=== PATIENT | male | born 1990 | race Two or more races ===

== ENCOUNTER 2020-09-29 22:07 | Emergency (ER) | payer MEDICAID, OTHER ==
[~2020-09-29] VITALS: Ht 165.1 cm; Wt 72.6 kg
[2020-09-30 00:28] VITALS: BP 145/94
== END 2020-09-30 00:35 ==
LOC: ER 22:10
DX: S30.1XXA Contusion of abdominal wall, initial encounter (principal); V49.9XXA Car occupant (driver) (passenger) injured in unspecified traffic accident, initial encounter; Y93.89 Activity, other specified; Y92.89 Other specified places as the place of occurrence of the external cause; Y99.8 Other external cause status
CPT/HCPCS: 71250; 74176

== ENCOUNTER 2020-10-01 13:39 | Emergency (ER) | payer OTHER, MEDICAID ==
[~2020-10-01] VITALS: Ht 165.1 cm; Wt 72.6 kg
[2020-10-01 15:10] VITALS: BP 132/94
== END 2020-10-01 15:50 | disposition home or self-care (01) ==
LOC: ER 13:39
DX: S20.211A Contusion of right front wall of thorax, initial encounter (principal); S30.1XXA Contusion of abdominal wall, initial encounter; V43.52XA Car driver injured in collision with other type car in traffic accident, initial encounter; Y93.89 Activity, other specified; Y92.488 Other paved roadways as the place of occurrence of the external cause; Y99.8 Other external cause status

== ENCOUNTER 2021-04-12 09:59 | Emergency (ER) | payer MEDICAID ==
[~2021-04-12] VITALS: Ht 165.1 cm; Wt 77.1 kg
[2021-04-12 12:44] VITALS: BP 146/89
== END 2021-04-12 13:42 | disposition home or self-care (01) ==
LOC: ER 09:59
DX: K52.9 Noninfective gastroenteritis and colitis, unspecified (principal); F12.10 Cannabis abuse, uncomplicated; Z20.822 Contact with and (suspected) exposure to COVID-19
CPT/HCPCS: 36415; 71045; 87426

== ENCOUNTER 2022-01-26 12:40 | Emergency (ER) | payer MEDICAID ==
[~2022-01-26] VITALS: Ht 165.1 cm; Wt 68.0 kg
[2022-01-26] MEDS ORDERED: TETRACAINE HCL 0.5% OPTH(EYE) SOLN 4ML RIGHTEYE ONE (18:30)
[2022-01-26] MEDS ORDERED: FLUORESCEIN SOD OPTH TEST STRIP RIGHTEYE ONE (18:30)
[2022-01-26 18:53] VITALS: BP 142/87
[2022-01-26] MEDS ORDERED: POLYSOL15 OP (18:57)
== END 2022-01-26 18:59 | disposition home or self-care (01) ==
LOC: ER 12:40
DX: S05.01XA Injury of conjunctiva and corneal abrasion without foreign body, right eye, initial encounter (principal); F12.10 Cannabis abuse, uncomplicated; X58.XXXA Exposure to other specified factors, initial encounter; Y93.89 Activity, other specified; Y92.89 Other specified places as the place of occurrence of the external cause; Y99.8 Other external cause status

== ENCOUNTER 2022-04-08 16:43 | Emergency (ER) | payer MEDICAID ==
[~2022-04-08] VITALS: Ht 165.1 cm; Wt 82.0 kg
[~2022-04-08 16:43] MED LIST: POLYSOL15 OP
[2022-04-08 17:43] VITALS: BP 119/74
== END 2022-04-08 18:52 | disposition left against medical advice (07) ==
LOC: ER 16:46
DX: H57.89 Other specified disorders of eye and adnexa (principal); Z53.21 Procedure and treatment not carried out due to patient leaving prior to being seen by health care provider

== ENCOUNTER 2023-10-07 04:59 | Emergency (ER) | payer MEDICAID ==
[~2023-10-07] VITALS: Ht 165.1 cm; Wt 63.6 kg
[~2023-10-07 04:59] MED LIST changes: -POLYSOL15 OP; +POLYSOL28 OP
[2023-10-07] MEDS: SODIUM CHLORIDE 0.9% 1,000 ML IV ONE (06:45)
[2023-10-07 06:48] LABS: Basophils # (auto) 0 10 ^3/uL (0-0.2); Eosinophils # (auto) 0 10 ^3/uL (0-0.8); Hemoglobin 10.9 g/dL (13.5-17.5); Lymphocytes # (auto) 0.2 10 ^3/uL (0.4-5.4); Monocytes # (auto) 0.4 10 ^3/uL (0-1.3)
[2023-10-07] MEDS: PROCHLORPERAZINE EDISYLATE 5 MG/ML 2ML VIAL IV ONE (06:49)
[2023-10-07 06:50] LABS: Basophils % (auto) 0.2 % (0.0-2.0); Hematocrit 33.9 % (41.0-53.0); Lymphocytes % (auto) 3.7 % (10.0-50.0); Mean Corpuscular Hemoglobin 26.5 pg (28.0-32.0); Mean Corpuscular Hgb Conc. 32.1 g/dL (32.0-36.0); Mean Corpuscular Volume 82.5 fL (80.0-100.0); Monocytes % (auto) 6.9 % (0.0-12.0); Neutrophils # (auto) 5.2 10 ^3/uL (1.6-8.6); Neutrophils % (auto) 89.2 % (37.0-80.0); Nucleated Red Blood Cells % 0.1 %; Red Blood Cells 4.11 10^6/uL (4.5-5.90); White Blood Cell 5.8 10^3/uL (4.4-10.8)
[2023-10-07 07:06] LABS: Alanine Aminotransferase 110 U/L (7-40); Albumin 5.7 g/dL (3.2-4.8); Alkaline Phosphatase 189 U/L (46-116); Anion Gap 18 (5-15); Aspartate Aminotransferase 265 U/L (13-40); BUN/Creatinine Ratio 10.3 (10.0-20.0); Blood Urea Nitrogen 10 mg/dL (9-23); Calcium 10.5 mg/dL (8.5-10.1); Carbon Dioxide 24 mmol/L (20-30); Chloride 96 mmol/L (98-107); Glucose 104 mg/dL (74-106); Potassium 3.3 mmol/L (3.5-5.1); Sodium 138 mmol/L (136-145)
[2023-10-07 07:07] LABS: Bilirubin, Total 2.6 mg/dL (0.2-1.0)
[2023-10-07 07:19] VITALS: TEMP 97.6
[2023-10-07] MEDS: PANTOPRAZOLE 40 MG TAB PO ONE (07:22)
[2023-10-07 07:40] VITALS: PULSE 97; RESP 16; O2SAT 97
[2023-10-07 09:03] LABS: Magnesium 1.5 mg/dL (1.6-2.6)
[2023-10-07] MEDS ORDERED: OMEP20TA PO (10:36)
[2023-10-07] MEDS ORDERED: LORA-655 PO (10:36)
[2023-10-07] MEDS: MAGNESIUM SULFATE 1GM/100ML 100 ML IV SCH (10:37)
[2023-10-07] MEDS: POTASSIUM EFFERVESENT TAB 25 MEQ PO ONE (11:17)
[2023-10-07 12:00] VITALS: BP 109/62; PULSE 96; RESP 19; O2SAT 96
== END 2023-10-07 13:18 | disposition home or self-care (01) ==
LOC: ER 04:59 → EDBD 04:59 → ER 13:17
DX: K29.20 Alcoholic gastritis without bleeding (principal); F10.139 Alcohol abuse with withdrawal, unspecified; E87.6 Hypokalemia; E83.42 Hypomagnesemia; R74.8 Abnormal levels of other serum enzymes; D64.9 Anemia, unspecified; F12.10 Cannabis abuse, uncomplicated; Y90.8 Blood alcohol level of 240 mg/100 ml or more
CPT/HCPCS: 36415; 80053; 80320; 83735; 85025; 96361; 96365; 96366; 96375; 99285; J0780; J3475; J7030

== ENCOUNTER 2023-12-06 22:10 | Emergency (ER) | payer MEDICAID ==
[~2023-12-06] VITALS: Ht 165.1 cm; Wt 74.0 kg
[~2023-12-06 22:10] MED LIST changes: +LORA-655 PO; +OMEP20TA PO
[2023-12-07] MEDS ORDERED: IBUP1TAB5 PO (00:26)
[2023-12-07] MEDS: IBUPROFEN 800 MG TAB PO ONE (01:41)
[2023-12-07 02:12] VITALS: BP 122/78; PULSE 86; RESP 18; TEMP 97.7
[2023-12-07 02:13] VITALS: O2SAT 97
== END 2023-12-07 05:21 | disposition home or self-care (01) ==
LOC: ER 22:10
DX: S20.212A Contusion of left front wall of thorax, initial encounter (principal); F12.10 Cannabis abuse, uncomplicated; Z86.2 Personal history of diseases of the blood and blood-forming organs and certain disorders involving the immune mechanism; W22.8XXA Striking against or struck by other objects, initial encounter; Y93.89 Activity, other specified; Y92.89 Other specified places as the place of occurrence of the external cause; Y99.8 Other external cause status
CPT/HCPCS: 71101

== ENCOUNTER 2024-02-09 11:34 | Emergency (ER) | payer MEDICAID ==
[~2024-02-09] VITALS: Ht 165.1 cm; Wt 68.1 kg
[~2024-02-09 11:34] MED LIST changes: +IBUP1TAB5 PO
[2024-02-09] MEDS: PROCHLORPERAZINE EDISYLATE 5 MG/ML 2ML VIAL IV ONE (12:49)
[2024-02-09] MEDS: PANTOPRAZOLE 40 MG/10 ML VIAL INJ IV ONE (12:49)
[2024-02-09] MEDS: SODIUM CHLORIDE 0.9% 1,000 ML IVB ONE (12:50)
[2024-02-09 12:58] VITALS: PULSE 74; RESP 18; O2SAT 96
[2024-02-09 13:07] LABS: Chloride 96 mmol/L (98-107); Sodium 136 mmol/L (136-145)
[2024-02-09 13:08] LABS: Anion Gap 15 (5-15); Carbon Dioxide 25 mmol/L (20-30)
[2024-02-09 13:09] LABS: Basophils # (auto) 0 10 ^3/uL (0-0.2); Calcium 10.6 mg/dL (8.5-10.1); Eosinophils # (auto) 0 10 ^3/uL (0-0.8); Lymphocytes # (auto) 0.7 10 ^3/uL (0.4-5.4); Monocytes # (auto) 0.4 10 ^3/uL (0-1.3); White Blood Cell 3.7 10^3/uL (4.4-10.8)
[2024-02-09 13:12] LABS: Basophils % (auto) 0.5 % (0.0-2.0); Eosinophils % (auto) 0.4 % (0.0-7.0); Hemoglobin 9.4 g/dL (13.5-17.5); Mean Corpuscular Hemoglobin 21.7 pg (28.0-32.0); Mean Corpuscular Hgb Conc. 31.2 g/dL (32.0-36.0); Mean Corpuscular Volume 69.5 fL (80.0-100.0); Monocytes % (auto) 9.6 % (0.0-12.0); Neutrophils # (auto) 2.6 10 ^3/uL (1.6-8.6); Neutrophils % (auto) 69.5 % (37.0-80.0); Nucleated Red Blood Cells % 0.1 %; Red Blood Cells 4.32 10^6/uL (4.5-5.90); Red Cell Distribution Width 21.8 % (11.8-14.3)
[2024-02-09 13:13] LABS: Glucose 103 mg/dL (74-106)
[2024-02-09 13:14] LABS: BUN/Creatinine Ratio 5.7 (10.0-20.0); Blood Urea Nitrogen < 5 mg/dL (9-23)
[2024-02-09 13:31] LABS: Anisocytosis Slight; Hypochromia Moderate; Platelet Estimate Adequate
[2024-02-09 13:32] LABS: Giant Platelets Few; Stomatocytes Few
[2024-02-09] MEDS ORDERED: ZOFR4T PO (13:36)
[2024-02-09] MEDS: POTASSIUM CHL 20 Meq TABLET PO ONE (14:06)
[2024-02-09 14:09] VITALS: BP 145/90; PULSE 90; RESP 18; TEMP 98.2; O2SAT 98
== END 2024-02-09 14:10 | disposition home or self-care (01) ==
LOC: ER 11:34
DX: F12.10 Cannabis abuse, uncomplicated (principal); R53.1 Weakness; R11.2 Nausea with vomiting, unspecified; F10.90 Alcohol use, unspecified, uncomplicated; Z86.2 Personal history of diseases of the blood and blood-forming organs and certain disorders involving the immune mechanism; Z79.899 Other long term (current) drug therapy; Y90.0 Blood alcohol level of less than 20 mg/100 ml
CPT/HCPCS: 36415; 80048; 85025; 96361; 96374; 96375; 99284; J0780; J7030

== ENCOUNTER 2024-11-10 11:54 | Emergency (ER) | payer MEDICAID ==
[~2024-11-10] VITALS: Ht 165.1 cm; Wt 73.0 kg
[~2024-11-10 11:54] MED LIST changes: +ZOFR4T PO
--- NOTE | 2024-11-10 12:03 | ED.PDOC ---
GI ASSESSMENT HPI Comments 34 y.o male with PMHx of anemia and ETOH abuse, presents to the ED via EMS for a chief complaint of chest pain associated with SOB and hematemesis that started today. EMS reports patient was seen at [facility] for similar complaint 3 day ago, had a blood transfusion with a total of 2 units given and diagnosed with erosion of the stomach lining. Patient reports he was in a rehabilitation center due to ETOH abuse, began vomiting blood and was taken to the hospital for the the blood transfusion. Patient reports drinking alcohol daily with last use being this morning. Patient denies any nausea, vomiting, diarrhea, melena, rectal bleeding, dizziness, fever or chills. Time Seen by MD: 11:55 Primary Care Provider: NONE Reviewed Notes: Nurses Notes, Medications, Allergies Allergies: Coded Allergies: NO KNOWN ALLERGIES (Unverified , 08/13/12) Home Meds Active Scripts Ondansetron Odt 4MG Tab (ZOFRAN PO) 4 Mg Tb, 4 MG PO Q8HP PRN for 7 Days, #21 TAB ODT TAB-DISSOLVE IN MOUTH, THEN SWALLOW Prov:ZINA SAUCEDA MD 02/09/24 Ondansetron Odt 4MG Tab (ZOFRAN PO) 4 Mg Tb, 4 MG PO Q8HP PRN for 7 Days, #21 TAB ODT TAB-DISSOLVE IN MOUTH, THEN SWALLOW Prov:ZINA SAUCEDA MD 02/09/24 Ibuprofen Micronized (Ibuprofen) 600 Mg Tab, 1 TAB PO Q6HPRN PRN, #20 TAB As needed for pain Prov:ELIZABETH [employer] 12/07/23 Lorazepam (Ativan) 0.5 Mg Tab, 1 TAB PO BID for 10 Days, #20 TAB Prov:SELENE CHARLES MD 10/07/23 Omeprazole (Gnp Omeprazole) 20 Mg Tab, 1 TAB PO BID for 15 Days, #30 TAB 1 Refill Prov:SELENE CHARLES MD 10/07/23 Polymyxin B-Trimethoprim (Trimethoprim Sulfate/Poly) Polymyxn Mariella, 1 DROP OP Q3HWA for 7 Days, #1 ML 0 Refills Prov:JUDITH TREJO 01/26/22 Information Source: Patient, Emergency Med Personnel Mode of Arrival: EMS Timing: Hours Duration: Since onset Quality: None Vomitus: Bloody Stool: Normal Recent: Ingestion of ETOH Recent Hx of: GI Bleed Modifying Factors: Nothing Associated sign and symptoms: Hematemesis Past Medical History PAST MEDICAL HISTORY: Anemia Past Medical History (Other): Erosion of the stomach lining Surgical History: Denies all surgeries Surgical History (Other): orchidectomy Family History Family History: No family hx of Cancer, No family hx of DM, No family hx of Heart shlomo Social History Smoker: Non-Smoker Alcohol: Heavy Drugs: Marijuana Lives In: Home Constitutional: denies: chills, diaphoresis, fatigue, fever, malaise, sweats, weakness, others EENTM: denies: blurred vision, double vision, ear bleeding, ear discharge, ear drainage, ear pain, ear ringing, eye pain, eye redness, hearing loss, mouth pain, mouth swelling, nasal discharge, nose bleeding, nose congestion, nose pain, photophobia, tearing, throat pain, throat swelling, voice changes, others Respiratory: reports: shortness of breath; denies: cough, hemoptysis, orthopnea, SOB at rest, SOB with excertion, stridor, wheezing, others Cardiovascular: reports: chest pain; denies: dizzy spells, diaphoresis, Dyspnea on exertion, edema, irregular heart beat, left arm pain, lightheadedness, palpitations, PND, syncope, others Gastrointestinal: reports: hematemesis; denies: abdomen distended, abdominal pain, blood streaked bowels, constipated, diarrhea, dysphagia, difficulty swallowing, melena, nausea, poor appetite, poor fluid intake, rectal bleeding, rectal pain, vomiting, others Genitourinary: denies: burning, dysuria, flank pain, frequency, hematuria, incontinence, penile discharge, penile sore, pain, testicle pain, testicle swelling, urgency, others Neurological: denies: dizziness, fainting, headache, left sided numbness, left sided weakness, numbness, paresthesia, pre-existing deficit, right sided numbness, right sided weakness, seizure, speech problems, tingling, tremors, weakness, others Musculoskeletal: denies: back pain, gout, joint pain, joint swelling, muscle pain, muscle stiffness, neck pain, others Integumetry: denies: bruises, change in color, change in hair/nails, dryness, laceration, lesions, lumps, rash, wounds, others Allergic/Immunocompromised: denies: Difficulty Healing, Frequent Infections, Hives, Itching, others Hematologic/Lymphatic: denies: anemia, blood clots, easy bleeding, easy bruising, swollen glands, others Endocrine: denies: excessive hunger, excessive sweating, excessive thirst, excessive urination, flushing, intolerance to cold, intolerance to heat, unexplained weight gain, unexplained weight loss, others Psychiatric: denies: anxiety, bipolar disorder, depression, hopeless, panic disorder, schizophrenia, sleepless, suicidal, others All Other Systems: Reviewed and Negative Physical Exam General Appearance: Moderate Distress HEENT: Pale Conjuntivae (L), Pale Conjuntivae (R), Pharynx Normal, TMs Normal Neck: Full Range of Motion, Non-Tender, Normal, Normal Inspection Respiratory: Chest Non-Tender, Lungs Clear, No Accessory Muscle Use, No Respiratory Distress, Normal Breath Sounds Cardiovascular: No Edema, No JVD, No Murmur, No Gallop, Normal Peripheral Pulses, Regular Rate/Rhythm Breast Exam: Deferred Gastrointestinal: No Organomegaly, Non Tender, No Pulsatile Mass, Normal Bowel Sounds, Soft Genitalia: Deferred Pelvic: Deferred Rectal: Deferred Extremities: No calf tenderness, Normal capillary refill, No pedal edema Musculoskeletal : Apperance: Normal Neurologic: Alert, veterinary virologist II-XII nml as Tested, Motor Weakness, Normal Affect, Normal Mood, No Sensory Deficits Cerebellar Function: Normal Reflexes: Normal Skin: Dry, Normal Color, Warm Lymphatic: No Adenopathy EKG EKG : Pulse Rate (adult): 117 Cardiac Rhythm: ST Was a procedure done? Was a procedure done?: No GI differential Dx Differential Diagnosis: Angina/[place], Gastritis/PUD, GI hemorrhage, Trauma intraab dominal, Anemia, Esophageal Varicies, Stress Ulcer X-Ray, Labs, Meds, VS Vital Signs Date Time Temp Pulse Resp B/P (MAP) Pulse Ox O2 Delivery O2 Flow Rate FiO2 11/10/24 12:20 102 11/10/24 12:03 117 11/10/24 12:00 97.7 112 18 139/85 (103) 98 97.7 11/10/24 11:59 117 Lab Test 11/10/24 12:42 Range/Units White Blood Count 5.5 4.4-10.8 10^3/uL Red Blood Count 4.31 L 4.5-5.90 10^6/uL Hemoglobin 8.5 L 13.5-17.5 g/dL Hematocrit 27.8 L 41.0-53.0 % Mean Corpuscular Volume 64.5 L 80.0-100.0 fL Mean Corpuscular Hemoglobin 19.8 L 28.0-32.0 pg Mean Corpuscular Hemoglobin Concent 30.7 L 32.0-36.0 g/dL Red Cell Distribution Width 24.5 H 11.8-14.3 % Platelet Count 276 140-450 10^3/uL Mean Platelet Volume 8.3 6.9-10.8 fL Neutrophils (%) (Auto) 76.3 37.0-80.0 % Lymphocytes (%) (Auto) 13.0 10.0-50.0 % Monocytes (%) (Auto) 10.0 0.0-12.0 % Eosinophils (%) (Auto) 0.2 0.0-7.0 % Basophils (%) (Auto) 0.5 0.0-2.0 % Neutrophils # (Auto) 4.2 1.6-8.6 10 ^3/uL Lymphocytes # (Auto) 0.7 0.4-5.4 10 ^3/uL Monocytes # (Auto) 0.5 0-1.3 10 ^3/uL Eosinophils # (Auto) 0 0-0.8 10 ^3/uL Basophils # (Auto) 0 0-0.2 10 ^3/uL Nucleated Red Blood Cells 0.0 % Prothrombin Time 11.1 9.3-11.8 sec Prothrombin Time INR 1.05 0.9-1.15 Activated Partial Thromboplast Time 28.9 24.5-34.5 SEC Sodium Level 137 136-145 mmol/L Potassium Level 3.9 3.5-5.1 mmol/L Chloride Level 99 98-107 mmol/L Carbon Dioxide Level 22 20-31 mmol/L Anion Gap 16 H 5-15 Blood Urea Nitrogen 10 9-23 mg/dL Creatinine 0.77 0.700-1.30 mg/dL Glomerular Filtration Rate Calc 121 >90 mL/min BUN/Creatinine Ratio 13.0 10.0-20.0 Serum Glucose 79 74-106 mg/dL Calcium Level 9.6 8.7-10.4 mg/dL Total Bilirubin 1.1 H 0.2-1.0 mg/dL Aspartate Amino Transferase (AST) 141 H 13-40 U/L Alanine Aminotransferase (ALT) 78 H 7-40 U/L Alkaline Phosphatase 158 H 46-116 U/L Total Protein 8.7 H 5.7-8.2 g/dL Albumin 5.2 H 3.2-4.8 g/dL Lipase 56 H 12-53 U/L Current Medications Medications (Trade) Dose Ordered Sig/Av Route Start Time Stop Time Status Last Admin Pantoprazole Sodium 50 ml @ 10 mls/hr Q5H ONCE IV 11/10/24 12:00 11/10/24 16:59 11/10/24 12:22 IV Hep-Lock was established. The patient's liver enzymes are elevated The lipase is 56 which is also elevated The patient was started on a Protonix drip. The patient was INR is 1.05 The patient's CBC shows a hemoglobin of 8.5 and hematocrit of 27.8 The patient will be admitted with an upper GI bleed and blood-loss anemia The patient understands and agrees with the management The patient was also typed and screened Time of 1ST Reevaluation: 11:58 Reevaluation 1ST: Unchanged Patient Education/Counseling: Diagnosis, Treatment, Prognosis Family Education/Counseling: No Family Present Departure 1 Departure Time of Disposition: 14:15 Impression: Primary Impression: ETOH abuse Additional Impressions: Elevated liver enzymes Upper GI bleed Blood loss anemia Disposition: 09 ADMITTED INPATIENT Admit to: Tele Condition: Fair Critical Care Note Critical Care Time?: Yes (45 min-critical care time only) Stability Stability form required: Yes Unstable for transfer: Telemetry monitoring (Telemetry monitoring required), ED Physician Assesment (Clinical assesment) Heart Score Heart Score: Heart Score Response (Comments) Value History Slightly Suspicious 0 EKG N/A 0 Age <45 0 Risk Factors No known risk factors 0 Troponin N/A 0 Total 0 I personally scribed for ZINA SAUCEDA MD ([email or web address]) on 11/10/24 at 12:03. Electronically submitted by Alisa Stone ([facility]). ZINA SAUCEDA MD Nov 10, 2024 12:03
--- NOTE | 2024-11-10 12:09 | ECG ---
[facility] Test Date: 2024-11-10 Test Time: 11:59:17 Pat Name: MERLIN ABURTO Department: ED Room: Gender: M Plate Maker: [id number] : [id number] Requested By: ZINA SAUCEDA Order Number: [id number] Reading MD: Lupillo Amanda Measurements Intervals [place] Rate: 117 P: 44 TN: 138 QRS: -5 QRSD: 88 T: 2 QT: 340 QTc: 475 Interpretive Statements Sinus tachycardia Consider anterior infarct Electronically Signed On 11-10-2024 15:14:36 PDT by Lupillo Amanda Please click the below link to view image of tracing.
[2024-11-10] MEDS: PANTOPRAZOLE 40mg/50ML NS AE 50 ML IV ONE (12:22)
[2024-11-10 13:10] LABS: Basophils # (auto) 0 10 ^3/uL (0-0.2); Basophils % (auto) 0.5 % (0.0-2.0); Eosinophils # (auto) 0 10 ^3/uL (0-0.8); Hemoglobin 8.5 g/dL (13.5-17.5); Mean Corpuscular Hemoglobin 19.8 pg (28.0-32.0); Monocytes # (auto) 0.5 10 ^3/uL (0-1.3)
[2024-11-10 13:13] LABS: Eosinophils % (auto) 0.2 % (0.0-7.0); Hematocrit 27.8 % (41.0-53.0); Lymphocytes # (auto) 0.7 10 ^3/uL (0.4-5.4); Mean Corpuscular Hgb Conc. 30.7 g/dL (32.0-36.0); Mean Corpuscular Volume 64.5 fL (80.0-100.0); Neutrophils # (auto) 4.2 10 ^3/uL (1.6-8.6); Neutrophils % (auto) 76.3 % (37.0-80.0); Platelet Count (auto) 276 10^3/uL (140-450); Red Blood Cells 4.31 10^6/uL (4.5-5.90); Red Cell Distribution Width 24.5 % (11.8-14.3); White Blood Cell 5.5 10^3/uL (4.4-10.8)
[2024-11-10 13:28] LABS: INR 1.05 (0.9-1.15); Partial Thromboplastin Time 28.9 SEC (24.5-34.5); Prothrombin Time 11.1 sec (9.3-11.8)
[2024-11-10 13:38] LABS: Anion Gap 16 (5-15); Blood Urea Nitrogen 10 mg/dL (9-23); Calcium 9.6 mg/dL (8.7-10.4); Carbon Dioxide 22 mmol/L (20-31); Chloride 99 mmol/L (98-107); Glucose 79 mg/dL (74-106); Potassium 3.9 mmol/L (3.5-5.1); Sodium 137 mmol/L (136-145)
[2024-11-10 13:39] LABS: Bilirubin, Total 1.1 mg/dL (0.2-1.0)
[2024-11-10 13:41] LABS: Alanine Aminotransferase 78 U/L (7-40); Albumin 5.2 g/dL (3.2-4.8); Alkaline Phosphatase 158 U/L (46-116); Aspartate Aminotransferase 141 U/L (13-40); Total Protein 8.7 g/dL (5.7-8.2)
[2024-11-10 14:04] LABS: Lipase 56 U/L (12-53)
[2024-11-10 15:51] VITALS: PULSE 89; RESP 15; O2SAT 95
[2024-11-10 19:00] VITALS: BP 119/80; TEMP 98.6
[2024-11-10 19:15] VITALS: PULSE 79; RESP 15; O2SAT 96
== END 2024-11-10 21:18 | disposition left against medical advice (07) ==
LOC: ER 11:54 → EDBD 11:54 → ER 21:18
DX: F10.10 Alcohol abuse, uncomplicated (principal); R74.01 Elevation of levels of liver transaminase levels; K92.2 Gastrointestinal hemorrhage, unspecified; D50.0 Iron deficiency anemia secondary to blood loss (chronic); Z79.899 Other long term (current) drug therapy; F12.90 Cannabis use, unspecified, uncomplicated
CPT/HCPCS: 36415; 80053; 83690; 85025; 85610; 85730; 86850; 86900; 86901; 93005; 96365; 96366; 99291